=== PATIENT | female | born 1955 | race Caucasian/White ===

== ENCOUNTER → 2017-06-27 | Outpatient (CLI) | payer BC ==
[~2017-06-27] MED LIST: ATEN100T PO; CLIN300C2 PO
== END | disposition home or self-care (01) ==
LOC: C.LAB1850 09:04
PROVIDERS: ATTEND Internal Medicine
DX: Z11.59 Encounter for screening for other viral diseases (principal)

== ENCOUNTER 2024-07-28 | Inpatient (IN) ==
[2024-07-28] MEDS: KETOROLAC 30 MG/ML VIAL IV ONE (01:26)
[2024-07-28 01:39] LABS: Basophils # (auto) 0.11 K/uL (0.00-0.20); Basophils % (auto) 0.8 %; Eosinophils # (auto) 0.26 K/uL (0.00-0.50); Eosinophils % (auto) 1.9 %; Hematocrit (blood only) 40.1 % (37.0-47.0); Hemoglobin 13.4 g/dl (12.0-16.0); Immature Granulocytes # (auto) 0.05 K/uL (0.01-0.20); Immature Granulocytes % (auto) 0.4 %; Lymphocytes # (auto) 2.27 K/uL (1.20-3.40); Lymphocytes % (auto) 16.7 %; Mean Corpuscular Hemoglobin 28.6 pg (25.0-34.0); Mean Corpuscular Hgb Conc 33.4 g/dL (32.0-36.0); Mean Corpuscular Volume 85.5 fL (80.0-100.0); Mean Platelet Volume 9.3 fL (9.4-12.4); Monocytes # (auto) 0.85 K/uL (0.11-0.59); Monocytes % (auto) 6.3 %; Neutrophils # (auto) 10.04 K/uL (1.40-6.50); Neutrophils % (auto) 73.9 %; Platelet Count 367 K/uL (130-400); RDW Coefficient of Variation 13.7 % (11.5-14.5); RDW Standard Deviation 42.5 fL (36.4-46.3); Red Blood Count 4.69 M/uL (4.20-5.40); White Blood Count 13.58 K/ul (4.8-10.8)
[2024-07-28 01:47] LABS: Albumin Globulin Ratio 1.4 (0.9-2); Albumin Level 4.2 gm/dl (3.4-5.0); BUN Creatinine Ratio 16.3 (10-20); Bilirubin,Total 0.6 mg/dl (0.2-1.0); Creatinine Clr Calc Pharmacy 56.6 ml/min; Globulin 2.9 gm/dl (2.5-4.0); Potassium 3.4 mmol/L (3.5-5.1); Total Protein 7.1 gm/dl (6.0-8.3)
[2024-07-28 01:54] LABS: Troponin I High Sensitivity 3.6 pg/ml (0-14)
--- NOTE | 2024-07-28 02:21 | Ultrasound Report ---
Exam(s): US GALLBLADDER EXAM: US Abdomen Limited, Gallbladder CLINICAL HISTORY: Reason for exam: ruq pain. TECHNIQUE: Real-time ultrasound of the right upper quadrant with image documentation. COMPARISON: No relevant prior studies available. FINDINGS: Liver: Hepatomegaly with echogenic parenchyma suggesting steatosis or other hepatocellular disease. Benign hepatic cysts. Gallbladder: Gallbladder distention, wall thickening, and pericholecystic fluid with positive Andrade sign. No visible cholelithiasis. Common bile duct: Common bile duct measures 8.5 mm, mildly enlarged for age. Pancreas: Unremarkable as visualized. Right kidney: Unremarkable. Right kidney measures 11.1 cm. No hydronephrosis. Other vasculature: Patent normally directed portal vein. IMPRESSION: 1. Gallbladder distention, wall thickening, and pericholecystic fluid with positive Andrade sign. No visible cholelithiasis. Appearance may represent acalculous cholecystitis. Correlate clinically. 2. Common bile duct measures 8.5 mm, mildly enlarged for age. If there is laboratory evidence of biliary obstruction, consider MRCP. 3. Hepatomegaly with echogenic parenchyma suggesting steatosis or other hepatocellular disease. Electronically signed by: Francesco Cadet M.D. 07/28/24 02:21 AM
--- NOTE | 2024-07-28 02:35 | Emergency Department Note ---
Impression & Plan Acute acalculous cholecystitis admit to the [facility] ED Provider Note NAME: ISAAK FRANCIS AGE: 68 SEX: Female INFORMANT: Patient ED PROVIDER(S): Bibi Norris DO CHIEF COMPLAINT: Mid back pain and bilateral rib cage pain PLAN: Disposition: admit to the [facility] MEDICAL DECISION MAKING: this is a 68-year-old female patient presents to the emergency department with sudden onset of mid back pain that radiates around to both sides of her ribs. Patient denies ever having pain like this in the past. Discomfort seem to cause her shortness of breath and chest discomfort. Laboratory studies revealed a mild leukocytosis with a white count of 13.5. H&H were stable. Troponin was negative. Renal function was normal. On physical exam, the patient had easily reproducible discomfort in the right upper quadrant with a positive Andrade sign. She went for ultrasound of the gallbladder which was positive and showed evidence of acalculus cholecystitis. Patient was medicated with IV Toradol for her pain. This gave her moderate relief of her discomfort. I discussed the case with Dr. Jordan from general surgery. He requested that I discussed the case with the [facility]. Care/management discussed with: field reimbursement manager, Dr. Jordan from general surgery, [facility] Triage Nursing notes: reviewed and agree with them. Vital Signs: reviewed and unremarkable Additional History obtained from: patient's who is at the bedside Differential Diagnosis: musculoskeletal pain, pancreatitis, cholecystitis, PE Diagnostics, independently interpreted by me: ECG: normal sinus rhythm at a rate of [address] segment elevation or signs of ischemia. There is no ectopy. Cardiac Monitoring: Normal sinus rhythm at a rate of 84 Imaging studies: gallbladder ultrasound: As per stat rad HPI: 68 year old Female arrives for evaluation of mid back pain and bilateral rib cage pain. patient describes sudden onset of pain in the middle of her back that wraparound both sides of her rib cage. pain began very suddenly around 9:30 PM this evening. She describes having sudden onset of mild shortness of breath and some chest discomfort. She tried taking Pepcid and Rolaids with no relief. She has never had pain like this in the past. Patient had eaten some beef and peppers earlier in the evening but this did not seem to be related to this. PAST MEDICAL HISTORY: See Below, PAST SURGICAL HISTORY: See Below, SOCIAL HISTORY: See Below, HOME MEDICATIONS: See Below ALLERGIES: None VITALS: See Below PHYSICAL EXAMINATION: HEENT: Head - normocephalic and atraumatic Pupils are equal, round, and reactive to light. Extraocular eye muscles are intact, and sclera are anicteric. Nose - moist nasal mucosa without discharge. Mouth - moist buccal mucosa. Oropharynx is nonerythematous and there is no tonsillar exudate or edema noted. Neck: Supple; no JVD, nuchal rigidity, cervical lymphadenopathy, or auscultated bruits. Heart: Regular rate and rhythm. There is a normal S1 and S2 with no murmurs, clicks, or gallops appreciated. Lungs: Clear to auscultation bilaterally with no wheezes, rales, or rhonchi. Abdomen: Soft, Exquisite tenderness to palpation of the right upper quadrant of the abdomen. There is a positive Andrade sign. There are no palpable pulsatile masses or hepatosplenomegaly. There is no guarding, rigidity, or rebound noted. Extremities: No evidence of cyanosis, clubbing, or edema. There are easily palpable peripheral pulses. Skin: warm and dry with good turgor and no rashes. Emergency department treatment: potline monitor, IV Toradol Emergency department course: The patient was evaluated in room B-11. A complete history and physical was performed. An IV lock was initiated and labs are drawn as above. An order was placed for continuous cardiac monitoring. The patient was in a normal sinus rhythm at a rate of 84. A twelve-lead EKG was obtained as described above. Patient was given a dose of IV Toradol for pain. Patient went for ultrasound of the right upper quadrant. This revealed evidence of a dilated gallbladder with a positive ultrasound Andrade sign And pericholecystic fluid. I reviewed these findings with the patient and her . She remained comfortable after receiving the IV Toradol. I discussed the case with Dr. Jordan from general surgery and he recommended that the patient be admitted to the hospitalist service. Past Med/Surg History Problem List (Updated 07/28/24 @ 07:01 by Bibi Norris DO) Acute acalculous cholecystitis (Acute) Acalculous cholecystitis Abnormal gallbladder ultrasound Abnormal mammogram of right breast Hip pain, right Screening for breast cancer Dietary counseling and surveillance Morbid obesity Normal left ventricular systolic function and wall motion Obesity Mild reactive airways disease Restrictive lung disease secondary to obesity Abnormal PFTs (pulmonary function tests) Vitamin B12 deficiency SOBOE (shortness of breath on exertion) FH: brain aneurysm Headache Health care maintenance Glossitis Fatigue (Acute) Hyperlipidemia (Acute) Hypertension (Acute) Metabolic syndrome (Acute) Nephrolithiasis (Acute) Nocturnal hypoxia (Acute) Severe sleep apnea (Acute) Tubular adenoma of colon (Acute) Vitamin D deficiency (Acute) Medical History Diarrhea Kidney stone BMI 38.0-38.9,adult Shortness of breath on exertion Surgical History History of cataract surgery History of blepharoplasty History of conization of cervix History of dilation and curettage History of tubal ligation Hx of cataract surgery Family History Unknown Stroke syndrome Cerebral arterial aneurysm Father Diabetes Lung cancer Hypertension Mother Cerebral arterial aneurysm Pure hypercholesterolemia Brother Sleep apnea, obstructive Pure hypercholesterolemia Sister Pure hypercholesterolemia Denies family history of Ovarian cancer Prostate cancer Myocardial infarction Breast cancer Colorectal cancer Social History Smoking Status: Former smoker packs per day: 0.5; Cigarettes Per Day: 10- 20 A DAY AND IT WAS OFF AND ON FOR UNKNOWN YEARS; Second Hand Exposure: No; Hx Alcohol Use: Yes Alcohol type: wine Hx Substance Use: No Preferred Language: Lithuanian Communication Ability: Effective Visual Impairment: No Limitations Hearing Ability: Normal Communications Consultant Required: No Beliefs That Will Affect Care: None marital status: Current Living Situation: Spouse current occupational status: retired Other Information That Helps Us Care for You: No Feels Safe at Home: Yes Safety Concerns: Feels Safe At This Time Childhood Exposure to Second-Hand Smoke: No Seatbelt Use: always Assistive Devices: None Allergies Allergies Allergy/AdvReac Type Severity Reaction Status Date / Time No Known Drug Allergies Allergy Verified 07/14/24 11:12 Home Meds Home Medications Medication Instructions Recorded Confirmed cholecalciferol (vitamin D3) 125 5,000 unit PO DAILY 08/17/20 07/28/24 mcg (5,000 unit) capsule Previous Rx's Medication Instructions Recorded mecobalamin (vitamin B12) 1,000 1,000 mcg PO DAILY #90 tabs 10/31/23 mcg chewable tablet atorvastatin 10 mg tablet 10 mg PO DAILY #90 tabs 04/04/24 hydrochlorothiazide 25 mg tablet 25 mg PO DAILY #90 tabs 04/04/24 losartan 100 mg tablet 100 mg PO DAILY #90 tabs 04/04/24 semaglutide 2 mg/dose (8 mg/3 mL) 2 mg (0.75 mL) subcut Q7D #3 mL 07/14/24 subcutaneous pen injector (Ozempic) Results & Data (ED) Vital Signs Vital Signs - 24 hr 07/28/24 00:04 07/28/24 00:24 07/28/24 00:28 Temperature 36.5 C Temperature Source Oral Pulse Rate 97 H 88 Pulse Rate [Apical] 88 Respiratory Rate 18 Respiratory Effort / Characteristics Non-Labored Spontaneous Respiratory Depth Normal Respiratory Pattern Regular Blood Pressure 151/90 H Blood Pressure [Right Arm] 159/94 H Blood Pressure Mean 110 Blood Pressure Mean [Right Arm] 115 Pulse Oximetry 94 94 Oxygen Delivery Method Room Air Room Air Sepsis Recent Fever Within 48 Hours No Sepsis New/Unexplained Change in Mental Status No Sepsis Action Taken by Nursing No Action Required 07/28/24 01:29 07/28/24 02:01 07/28/24 04:06 Temperature Temperature Source Pulse Rate 87 Pulse Rate [Apical] 86 85 Respiratory Rate 20 20 20 Respiratory Effort / Characteristics Non-Labored Spontaneous Non-Labored Spontaneous Respiratory Depth Normal Normal Respiratory Pattern Regular Regular Blood Pressure Blood Pressure [Right Arm] 145/84 H 137/88 Blood Pressure Mean Blood Pressure Mean [Right Arm] 104 104 Pulse Oximetry 94 94 95 Oxygen Delivery Method Room Air Room Air Room Air Sepsis Recent Fever Within 48 Hours Sepsis New/Unexplained Change in Mental Status Sepsis Action Taken by Nursing Laboratory Data 07/28/24 00:30 07/28/24 00:30 Lab Results 07/28/24 07/28/24 Range/Units 00:30 03:05 WBC 13.58 H (4.8-10.8) K/ul RBC 4.69 (4.20-5.40) M/uL Hgb 13.4 (12.0-16.0) g/dl Hct 40.1 (37.0-47.0) % MCV 85.5 (80.0-100.0) fL MCH 28.6 (25.0-34.0) pg MCHC 33.4 (32.0-36.0) g/dL RDW Std Deviation 42.5 (36.4-46.3) fL RDW Coeff of Meg 13.7 (11.5-14.5) % Plt Count 367 (130-400) K/uL MPV 9.3 L (9.4-12.4) fL Immature Gran % (Auto) 0.4 % Neut % (Auto) 73.9 % Lymph % (Auto) 16.7 % Hyde % (Auto) 6.3 % Eos % (Auto) 1.9 % Baso % (Auto) 0.8 % Neut # (Auto) 10.04 H (1.40-6.50) K/uL Lymph # (Auto) 2.27 (1.20-3.40) K/uL Hyde # (Auto) 0.85 H (0.11-0.59) K/uL Eos # (Auto) 0.26 (0.00-0.50) K/uL Baso # (Auto) 0.11 (0.00-0.20) K/uL Immature Gran # (Auto) 0.05 (0.01-0.20) K/uL Sodium 139 (136-145) mmol/L Potassium 3.4 L (3.5-5.1) mmol/L Chloride 103 (98-107) mmol/L Carbon Dioxide 26 (21-32) mmol/L Anion Gap 10 (3-11) BUN 17 (6-23) mg/dl Creatinine 1.04 (0.6-1.2) mg/dl Est Cr Clr Drug Dosing 56.6 ml/min eGFR 57.82 BUN/Creatinine Ratio 16.3 (10-20) Glucose 120 H (70-99(Fasting)) mg/dl Calcium 10.0 (8.6-10.3) mg/dl Total Bilirubin 0.6 (0.2-1.0) mg/dl AST 28 (13-39) U/L ALT 19 (7-52) U/L Alkaline Phosphatase 72 (34-104) U/L Troponin I High Sens 3.6 (0-14) pg/ml Total Protein 7.1 (6.0-8.3) gm/dl Albumin 4.2 (3.4-5.0) gm/dl Globulin 2.9 (2.5-4.0) gm/dl Albumin/Globulin Ratio 1.4 (0.9-2) Lipase 33 (11-82) U/L Urine Color Yellow Urine Appearance Cloudy A (Clear) Urine pH 5.5 (4.5-7.5) Ur Specific [place] 1.016 (1.000-1.030) Urine Protein Negative (Negative) Urine Glucose (UA) Negative (Negative) Urine Ketones Negative (Negative) Urine Blood Negative (Negative) Urine Nitrite Positive A (Negative) Urine Bilirubin Negative (Negative) Urine Urobilinogen Negative (Negative) Ur Leukocyte Esterase 2+ H (Negative) Urine WBC (Auto) 21-50 H (0-5) /hpf Urine RBC (Auto) 0-2 (0-2) /hpf U Hyaline Cast (Auto) 0-2 (0-2) /lpf U Epithel Cells (Auto) 3-5 H (0-2) /hpf Urine Bacteria (Auto) 4+ H (None Seen) Administered Medications Ciprofloxacin (Cipro / D5w) 400 mg in 200 mls @ 200 mls/hr IV Q12H [facility]; Protocol Stop: 08/07/24 05:59 Last Admin: 07/28/24 05:50 Dose: 200 mls/hr Documented By: MGW Potassium Chloride/Sodium Chloride (Normal Saline W/20 Meq Kcl) 20 meq in 1,000 mls @ 80 mls/hr IV .[id number] PABLO Stop: 07/28/24 18:29 Last Admin: 07/28/24 05:50 Dose: 80 mls/hr Documented By: HFW Discontinued Medications Ketorolac Tromethamine (Ketorolac 30 Mg/Ml Vial) 30 mg IV NOW ONE Stop: 07/28/24 01:23 Last Admin: 07/28/24 01:26 Dose: 30 mg Documented By: EMB Imaging Data Radiologist's Impression: Gallbladder Ultrasound 07/28/24 01:22 Exam(s): US GALLBLADDER EXAM: US Abdomen Limited, Gallbladder CLINICAL HISTORY: Reason for exam: ruq pain. TECHNIQUE: Real-time ultrasound of the right upper quadrant with image documentation. COMPARISON: No relevant prior studies available. FINDINGS: Liver: Hepatomegaly with echogenic parenchyma suggesting steatosis or other hepatocellular disease. Benign hepatic cysts. Gallbladder: Gallbladder distention, wall thickening, and pericholecystic fluid with positive Andrade sign. No visible cholelithiasis. Common bile duct: Common bile duct measures 8.5 mm, mildly enlarged for age. Pancreas: Unremarkable as visualized. Right kidney: Unremarkable. Right kidney measures 11.1 cm. No hydronephrosis. Other vasculature: Patent normally directed portal vein. IMPRESSION: 1. Gallbladder distention, wall thickening, and pericholecystic fluid with positive Andrade sign. No visible cholelithiasis. Appearance may represent acalculous cholecystitis. Correlate clinically. 2. Common bile duct measures 8.5 mm, mildly enlarged for age. If there is laboratory evidence of biliary obstruction, consider MRCP. 3. Hepatomegaly with echogenic parenchyma suggesting steatosis or other hepatocellular disease. Electronically signed by: Francesco Cadet M.D. 07/28/24 02:21 AM Discharge Plan Visit Data Chief Complaint: Back Injury/Pain Stated Complaint: SEVERE BACK PAIN -ACROSS BACK, AROUND SIDES ED Provider: Bibi Norris Discharge Problem: Acute acalculous cholecystitis Patient Disposition: Admitted As Inpatient Discharge Instructions Interventions: ED Discharge Assessment Last Done: 07/28/24 05:09
[2024-07-28 03:52] LABS: Appearance Urine Cloudy (Clear); Bacteria Urine Automated 4+ (None Seen); Bilirubin Urine Negative (Negative); Blood Urine Negative (Negative); Cast Urine Automated 0-2 /lpf (0-2); Color Urine Yellow; Glucose Urine UA Negative (Negative); Ketones Urine Negative (Negative); Leukocyte Esterase Urine 2+ (Negative); Nitrite Urine Positive (Negative); Protein Urine Negative (Negative); RBC Urine Automated 0-2 /hpf (0-2); Specific Gravity Urine 1.016 (1.000-1.030); Urobilinogen Urine Negative (Negative); WBC Urine Automated 21-50 /hpf (0-5); pH Urine 5.5 (4.5-7.5)
[2024-07-28] MEDS ORDERED: hydrALAZINE HCL 20 MG/ML VIAL IV PRN (04:18)
--- NOTE | 2024-07-28 04:21 | History & Physical Report ---
Date of Service July 28, 2024 Assessment & Plan (1) Abnormal gallbladder ultrasound: (2) Acalculous cholecystitis: (3) Hyperlipidemia: (4) Hypertension: (5) Vitamin B12 deficiency: (6) Obesity: (7) Metabolic syndrome: (8) Severe sleep apnea: Plan Acalculous cholecystitis/abnormal gallbladder ultrasound- Neutrophilic leukocytosis Normal LFTs and lipase Dilated common bile duct of 8.5 mm Sonographic Andrade sign Order HIDA scan NPO Cipro 400 mg IV every 12 hours Flagyl 500 mg IV every 8 hours Pantoprazole 40 mg IV daily Zofran 4 mg IV every 6 hours as needed NSS + KCl 20 mill equivalents at 80 mL/h x 1 L Acetaminophen 1 g IV every 8 hours as needed for mild pain or fever Morphine sulfate 2 mg IV every 3 hours as needed for moderate pain Morphine sulfate 4 mg IV every 3 hours as needed for severe pain Consult general surgery Metabolic syndrome/diabetes mellitus/hyperlipidemia- Holding semaglutide, atorvastatin Hypertension- Hold HCTZ and losartan Hydralazine 10 mg IV every 4 hours as needed for systolic blood pressure above 160 History of Present Illness Chief Complaint: The patient presents to the emergency department with acute onset of pain that began around 9:00 the evening of 07/27, that began around her right upper quadrant of abdomen, and spread around to the back on both sides bilaterally. Primary Care Provider: Suhas Tomlin MD The patient is a 68-year-old female with a past medical history including morbid obesity following with bariatric service, recent 13.7% weight loss, recently placed on semaglutide, mild reactive airways disease, restrictive lung disease secondary to obesity, B12 deficiency, hyperlipidemia, hypertension, metabolic syndrome, nocturnal hypoxia, severe LAURA and vitamin D deficiency. The patient presents to the emergency department after the acute onset of right upper quadrant pain rotating around to her back bilaterally, around 9:00 this evening , with the intensity causing her to come to the ED for assessment. She has had no previous occurrence of this pain. She has not had any significant issues with reflux or indigestion. She was given Toradol 30 mg IV in the ED which relieved the pain. Gallbladder ultrasound showed abnormal gallbladder with sonographic Andrade sign, common bile duct dilation of 8.5 mm, altogether concerning for possible acalculous cholecystitis. Case was reviewed by the ED with general surgery, who asked that the patient be admitted to the hospitalist service with surgical consult. Allergies Allergy/AdvReac Type Severity Reaction Status Date / Time No Known Drug Allergies Allergy Verified 07/14/24 11:12 Home Medications Medication Instructions Recorded Confirmed Type cholecalciferol (vitamin D3) 125 5,000 unit PO DAILY 08/17/20 07/28/24 History mcg (5,000 unit) capsule mecobalamin (vitamin B12) 1,000 1,000 mcg PO DAILY #90 tabs 10/31/23 07/28/24 Rx mcg chewable tablet atorvastatin 10 mg tablet 10 mg PO DAILY #90 tabs 04/04/24 07/28/24 Rx hydrochlorothiazide 25 mg tablet 25 mg PO DAILY #90 tabs 04/04/24 07/28/24 Rx losartan 100 mg tablet 100 mg PO DAILY #90 tabs 04/04/24 07/28/24 Rx semaglutide 2 mg/dose (8 mg/3 mL) 2 mg (0.75 mL) subcut Q7D #3 mL 07/14/24 07/28/24 Rx subcutaneous pen injector (Ozempic) Past Med/Surg History Problem List (Updated 07/28/24 @ 04:16 by Tan Dowd MD) Acalculous cholecystitis Abnormal gallbladder ultrasound Abnormal mammogram of right breast Hip pain, right Screening for breast cancer Dietary counseling and surveillance Morbid obesity Normal left ventricular systolic function and wall motion Obesity Mild reactive airways disease Restrictive lung disease secondary to obesity Abnormal PFTs (pulmonary function tests) Vitamin B12 deficiency SOBOE (shortness of breath on exertion) FH: brain aneurysm Headache Health care maintenance Glossitis Fatigue (Acute) Hyperlipidemia (Acute) Hypertension (Acute) Metabolic syndrome (Acute) Nephrolithiasis (Acute) Nocturnal hypoxia (Acute) Severe sleep apnea (Acute) Tubular adenoma of colon (Acute) Vitamin D deficiency (Acute) Medical History Diarrhea Kidney stone BMI 38.0-38.9,adult Shortness of breath on exertion Surgical History History of cataract surgery History of blepharoplasty History of conization of cervix History of dilation and curettage History of tubal ligation Hx of cataract surgery Family History Unknown Stroke syndrome Cerebral arterial aneurysm Father Diabetes Lung cancer Hypertension Mother Cerebral arterial aneurysm Pure hypercholesterolemia Brother Sleep apnea, obstructive Pure hypercholesterolemia Sister Pure hypercholesterolemia Denies family history of Ovarian cancer Prostate cancer Myocardial infarction Breast cancer Colorectal cancer Social History Smoking Status: Former smoker packs per day: 0.5; Cigarettes Per Day: 10- 20 A DAY AND IT WAS OFF AND ON FOR UNKNOWN YEARS; Second Hand Exposure: No; Hx Alcohol Use: Yes Alcohol type: beer and hard liquor Hx Substance Use: No Preferred Language: Albanian Communication Ability: Effective Visual Impairment: No Limitations Hearing Ability: Normal Employee Health Rn Required: No marital status: Current Living Situation: Spouse current occupational status: retired Feels Safe at Home: Yes Childhood Exposure to Second-Hand Smoke: No Seatbelt Use: always Review of Systems Review of Systems: The patient denies chest pain, palpitations, shortness of breath, dyspnea on exertion, cough, lower extremity swelling, sore throat, fevers, chills, sweats, weight change, fatigue, nausea, vomiting, diarrhea , constipation, blood in urine or stool, dysuria, urinary frequency or urgency, lightheadedness, dizziness, headache, memory loss, loss of consciousness, rash, abnormal bruising or bleeding, imbalance, focal or generalized weakness, numbness or tingling in arms or legs, generalized arthralgias or myalgias, neck pain, or night sweats. The review of systems is otherwise negative other than for that already noted above, and at least 10 systems have been reviewed. Physical Exam Physical Exam: The patient is awake, alert and oriented 3, well developed and well nourished, normocephalic and atraumatic, lying in bed and in no acute distress. HEENT--PERRL, EOMI, mucous membranes and oropharynx dry. Neck--supple.No JVD. No bruits. Thyroid normal, trachea midline, no adenopathy. Heart--normal S1 and S2.No murmurs, rubs or gallops. Lungs--clear bilaterally, no respiratory distress, no accessory muscle use. Abdomen--normal bowel sounds and soft. Nontender. Nondistended, no hernias or masses,no organomegaly. Extremities--no cyanosis or clubbing. No edema. There are good distal pulses b/l. Dermatologic--normal skin turgor, normal color, no abnormal lymph nodes, no rash. Neurologic--cranial nerves II through XII grossly intact. Rheumatologic--normal range of motion. Psychiatric--normal affect. Results & Data Results & Data Vital Signs (Past 12 Hours) Vital Signs Temp Pulse Pulse Resp BP BP Pulse Ox 07/28/24 04:06 85 20 137/88 95 07/28/24 02:01 86 20 145/84 H 94 07/28/24 01:29 87 20 94 07/28/24 00:28 88 07/28/24 00:24 88 18 159/94 H 94 07/28/24 00:04 36.5 C 97 H 151/90 H 94 O2 Del Method 07/28/24 04:06 Room Air 07/28/24 02:01 Room Air 07/28/24 01:29 Room Air 07/28/24 00:28 07/28/24 00:24 Room Air 07/28/24 00:04 Room Air Laboratory Results Laboratory Results WBC 13.58 K/ul (4.8-10.8) H 07/28/24 00:30 RBC 4.69 M/uL (4.20-5.40) 07/28/24 00:30 Hgb 13.4 g/dl (12.0-16.0) 07/28/24 00:30 Hct 40.1 % (37.0-47.0) 07/28/24 00:30 MCV 85.5 fL (80.0-100.0) 07/28/24 00:30 MCH 28.6 pg (25.0-34.0) 07/28/24 00:30 MCHC 33.4 g/dL (32.0-36.0) 07/28/24 00:30 RDW Std Deviation 42.5 fL (36.4-46.3) 07/28/24 00:30 RDW Coeff of Meg 13.7 % (11.5-14.5) 07/28/24 00:30 Plt Count 367 K/uL (130-400) 07/28/24 00:30 MPV 9.3 fL (9.4-12.4) L 07/28/24 00:30 Immature Gran % (Auto) 0.4 % 07/28/24 00:30 Neut % (Auto) 73.9 % 07/28/24 00:30 Lymph % (Auto) 16.7 % 07/28/24 00:30 [place] % (Auto) 6.3 % 07/28/24 00:30 Eos % (Auto) 1.9 % 07/28/24 00:30 Baso % (Auto) 0.8 % 07/28/24 00:30 Neut # (Auto) 10.04 K/uL (1.40-6.50) H 07/28/24 00:30 Lymph # (Auto) 2.27 K/uL (1.20-3.40) 07/28/24 00:30 [place] # (Auto) 0.85 K/uL (0.11-0.59) H 07/28/24 00:30 Eos # (Auto) 0.26 K/uL (0.00-0.50) 07/28/24 00:30 Baso # (Auto) 0.11 K/uL (0.00-0.20) 07/28/24 00:30 Immature Gran # (Auto) 0.05 K/uL (0.01-0.20) 07/28/24 00:30 Sodium 139 mmol/L (136-145) 07/28/24 00:30 Potassium 3.4 mmol/L (3.5-5.1) L 07/28/24 00:30 Chloride 103 mmol/L (98-107) 07/28/24 00:30 Carbon Dioxide 26 mmol/L (21-32) 07/28/24 00:30 Anion Gap 10 (3-11) 07/28/24 00:30 BUN 17 mg/dl (6-23) 07/28/24 00:30 Creatinine 1.04 mg/dl (0.6-1.2) 07/28/24 00:30 Est Cr Clr Drug Dosing 56.6 ml/min 07/28/24 00:30 eGFR 57.82 07/28/24 00:30 BUN/Creatinine Ratio 16.3 (10-20) 07/28/24 00:30 Glucose 120 mg/dl (70-99(Fasting)) H 07/28/24 00:30 Calcium 10.0 mg/dl (8.6-10.3) 07/28/24 00:30 Total Bilirubin 0.6 mg/dl (0.2-1.0) 07/28/24 00:30 AST 28 U/L (13-39) 07/28/24 00:30 ALT 19 U/L (7-52) 07/28/24 00:30 Alkaline Phosphatase 72 U/L (34-104) 07/28/24 00:30 Troponin I High Sens 3.6 pg/ml (0-14) 07/28/24 00:30 Total Protein 7.1 gm/dl (6.0-8.3) 07/28/24 00:30 Albumin 4.2 gm/dl (3.4-5.0) 07/28/24 00:30 Globulin 2.9 gm/dl (2.5-4.0) 07/28/24 00:30 Albumin/Globulin Ratio 1.4 (0.9-2) 07/28/24 00:30 Lipase 33 U/L (11-82) 07/28/24 00:30 Urine Color Yellow 07/28/24 03:05 Urine Appearance Cloudy (Clear) A 07/28/24 03:05 Urine pH 5.5 (4.5-7.5) 07/28/24 03:05 Ur Specific [place] 1.016 (1.000-1.030) 07/28/24 03:05 Urine Protein Negative (Negative) 07/28/24 03:05 Urine Glucose (UA) Negative (Negative) 07/28/24 03:05 Urine Ketones Negative (Negative) 07/28/24 03:05 Urine Blood Negative (Negative) 07/28/24 03:05 Urine Nitrite Positive (Negative) A 07/28/24 03:05 Urine Bilirubin Negative (Negative) 07/28/24 03:05 Urine Urobilinogen Negative (Negative) 07/28/24 03:05 Ur Leukocyte Esterase 2+ (Negative) H 07/28/24 03:05 Urine WBC (Auto) 21-50 /hpf (0-5) H 07/28/24 03:05 Urine RBC (Auto) 0-2 /hpf (0-2) 07/28/24 03:05 U Hyaline Cast (Auto) 0-2 /lpf (0-2) 07/28/24 03:05 U Epithel Cells (Auto) 3-5 /hpf (0-2) H 07/28/24 03:05 Urine Bacteria (Auto) 4+ (None Seen) H 07/28/24 03:05 Impressions Gallbladder Ultrasound 07/28/24 01:22 Exam(s): US GALLBLADDER EXAM: US Abdomen Limited, Gallbladder CLINICAL HISTORY: Reason for exam: ruq pain. TECHNIQUE: Real-time ultrasound of the right upper quadrant with image documentation. COMPARISON: No relevant prior studies available. FINDINGS: Liver: Hepatomegaly with echogenic parenchyma suggesting steatosis or other hepatocellular disease. Benign hepatic cysts. Gallbladder: Gallbladder distention, wall thickening, and pericholecystic fluid with positive Andrade sign. No visible cholelithiasis. Common bile duct: Common bile duct measures 8.5 mm, mildly enlarged for age. Pancreas: Unremarkable as visualized. Right kidney: Unremarkable. Right kidney measures 11.1 cm. No hydronephrosis. Other vasculature: Patent normally directed portal vein. IMPRESSION: 1. Gallbladder distention, wall thickening, and pericholecystic fluid with positive Andrade sign. No visible cholelithiasis. Appearance may represent acalculous cholecystitis. Correlate clinically. 2. Common bile duct measures 8.5 mm, mildly enlarged for age. If there is laboratory evidence of biliary obstruction, consider MRCP. 3. Hepatomegaly with echogenic parenchyma suggesting steatosis or other hepatocellular disease. Electronically signed by: Francesco Cadet M.D. 07/28/24 02:21 AM Code Status & VTE Plan Code Status Full code VTE Prophylaxis Plan VTE Prophylaxis will be ordered: Yes PG Care Time/CCT Total # of Minutes Spent Total Time Spent with Patient: Total time spent is greater than 50% in coordination of care (as documented) at patient's floor/unit and/or counseling patient: Coding Level of Care Code 59546 INT INP/OBS CARE 3/75MIN Diagnoses Abnormal gallbladder ultrasound R93.2 Acalculous cholecystitis K81.9 Hyperlipidemia E78.5 Hypertension I10 Vitamin B12 deficiency E53.8 Class 2 severe obesity due to excess calories with serious comorbidity and body mass index (BMI) of 39.0 to 39.9 in adult E66.01; Z68.39 Obesity type: due to excess calories Obesity classification: adult class 2 (BMI 35 - 39.9) Serious obesity comorbidity presence: with serious comorbidity Body mass index: BMI 39.0-39.9 Metabolic syndrome E88.81 Severe sleep apnea G47.30 (6) Obesity Obesity type: due to excess calories Obesity classification: adult class 2 (BMI 35 - 39.9) Serious obesity comorbidity presence: with serious comorbidity Body mass index: BMI 39.0-39.9 Qualified Code(s): E66.01 - Morbid (severe) obesity due to excess calories; Z68.39 - Body mass index [BMI] 39.0-39.9, adult
[2024-07-28] MEDS ORDERED: MoRPHine SULFATE 4 MG/ML 1 ML CARP\\VIAL IV PRN (05:25)
[2024-07-28] MEDS ORDERED: MoRPHine SULFATE 2 MG/ML CARP IV PRN (05:25)
[2024-07-28] MEDS ORDERED: ONDANSETRON INJ 2 MG/ML 2 ML VIAL IV PRN (05:25)
[2024-07-28] MEDS: CIPROFLOXACIN / D5W 400 MG/200 ML BAG IV SCH (05:50)
[2024-07-28] MEDS: NSS + 20MEQ KCL 20 MEQ/1,000 ML BAG IV SCH (05:50)
[2024-07-28] MEDS: metroNIDAZOLE 500 MG/100 ML BAG IV SCH (07:32)
--- NOTE | 2024-07-28 12:08 | Electrocardiogram Report ---
Test Reason : Blood Pressure : */* mmHG Vent. Rate : 75 BPM Atrial Rate : 75 BPM P-R Int : 194 ms QRS Dur : 92 ms QT Int : 388 ms P-R-T Axes : 52 -4 45 degrees QTcB Int : 433 ms Normal sinus rhythm Incomplete right bundle branch block Normal ECG When compared with ECG of 28-Jul-2024 00:23, No significant change was found Confirmed by Seth Baker ([id number]) on 07/28/2024 12:08:42 PM Referred By: REFERRED SELF Confirmed By: Seth Baker
--- NOTE | 2024-07-28 13:01 | Nuclear Medicine Report ---
NM hepatobiliary EF CLINICAL HISTORY: acalculous cholecystitis TECHNIQUE: Following the intravenous injection of 5.0 mCi of Tc-99m labeled Technetium 99m mebrofeni n, multiple images of the upper abdomen were obtained in the anterior projection with uptake measurem ents of the gallbladder obtained. Once the gallbladder and small bowel were visualized, the patient w as intravenously infused over 30 minutes with 0.02 mcg/kg of Sincalide (CCK), and imaging and uptakes were again obtained. Comparison: Comparison is made to gallbladder ultrasound 07/28/2024 FINDINGS: Sequential images demonstrate normal uptake in the liver, common bile duct, gallbladder, an d small bowel. No defects in uptake are identified. Subsequent imaging after the administration of si ncalide demonstrates prompt elimination of the radiotracer from the gallbladder. The calculated gallbladder ejection fraction based on uptake measurements is 81%. IMPRESSION: Normal uptake and excretion of contrast by the gallbladder. Reference: Normal gallbladder ejection fraction is greater than 33%. ACT 112: Negative or not required by law. Electronically signed by: Saji Rodriguez M.D. 07/28/2024 12:59 PM
[2024-07-28] MEDS: SINCALIDE 2 MCG in SODIUM CHLORIDE 0.9% 100 ML IV ONE (13:05)
[2024-07-28] MEDS: PANTOprazole 40 MG in SYRINGE 0 ML IV SCH (13:07)
--- NOTE | 2024-07-28 13:17 | Surgery Consultation ---
Date of Consultation July 28, 2024 Assessment & Plan (1) Acute acalculous cholecystitis: 68 yo female with 12 hour history of upper abdominal pain with radiation around her back. Ultrasound showing acute acalculous cholecystitis and slightly dilated CBD at 8.5 mm however normal t. bili and lfts. HIDA scan without biliary obstruction. RUQ pain on examination. Patient likely passed small stone/thick sludge and caused her pain. Discussed findings of ultrasound and indication for cholecystectomy to prevent future attacks vs biliary obstruction. Discussed procedure, expected recovery, and risks. She would like to proceed with laparoscopic cholecystectomy while admitted. Will plan for lap roxanna t omorrow am with Dr. Levine. Okay for clear liquids today, NPO after midnight. Continue IV abx. Discussed with Dr. Levine who agrees with above. History of Present Illness Reason for Consultation: Acute acalculous cholecystitis Requesting Physician: Tan Dowd MD Attending Physician: Quique Yates History of Present Illness Jaja is a 68 year old female with past medical history of hypertension, hyperlipidemia, LAURA, vitamin D deficiency, obesity who presented to emergency department last evening due to sudden onset of upper abdominal pain with radiation around her back that started last evening around 930 pm. Pain was sharp and stabbing and continued to increase in severity. Denies of any fever, chills, nausea, vomiting, chest pain, diarrhea, constipation, difficulty urinating, blood in urine, black/tarry stools. No history of gallbladder issues. ER work-up included labs which showed leukocytosis of 13K, afebrile. Ultrasound showing acute acalculous cholecystitis. T. bili and lfts wnl. CBD 8.5 mm on ultrasound. Underwent HIDA scan this am which showed prompt uptake in gallbladder, liver, and small bowel consistent with no biliary obstruction. Jaja currently states she pain is resolved. Hungry. No nausea or vomiting. Allergies Allergy/AdvReac Type Severity Reaction Status Date / Time No Known Drug Allergies Allergy Verified 07/14/24 11:12 Home Medications Medication Instructions Recorded Confirmed Type cholecalciferol (vitamin D3) 125 5,000 unit PO DAILY 08/17/20 07/28/24 History mcg (5,000 unit) capsule mecobalamin (vitamin B12) 1,000 1,000 mcg PO DAILY #90 tabs 10/31/23 07/28/24 Rx mcg chewable tablet atorvastatin 10 mg tablet 10 mg PO DAILY #90 tabs 04/04/24 07/28/24 Rx hydrochlorothiazide 25 mg tablet 25 mg PO DAILY #90 tabs 04/04/24 07/28/24 Rx losartan 100 mg tablet 100 mg PO DAILY #90 tabs 04/04/24 07/28/24 Rx semaglutide 2 mg/dose (8 mg/3 mL) 2 mg (0.75 mL) subcut Q7D #3 mL 07/14/24 07/28/24 Rx subcutaneous pen injector (Ozempic) Patient History Medical History Diarrhea Kidney stone BMI 38.0-38.9,adult Shortness of breath on exertion Surgical History History of cataract surgery History of blepharoplasty History of conization of cervix History of dilation and curettage History of tubal ligation Hx of cataract surgery Family History Unknown Stroke syndrome Cerebral arterial aneurysm Father Diabetes Lung cancer Hypertension Mother Cerebral arterial aneurysm Pure hypercholesterolemia Brother Sleep apnea, obstructive Pure hypercholesterolemia Sister Pure hypercholesterolemia Denies family history of Ovarian cancer Prostate cancer Myocardial infarction Breast cancer Colorectal cancer Social History Smoking Status: Former smoker packs per day: 0.5; Cigarettes Per Day: 10- 20 A DAY AND IT WAS OFF AND ON FOR UNKNOWN YEARS; Second Hand Exposure: No; Hx Alcohol Use: Yes Alcohol type: wine Hx Substance Use: No Preferred Language: Greek Communication Ability: Effective Visual Impairment: No Limitations Hearing Ability: Normal Social Media Marketing Manager Required: No Beliefs That Will Affect Care: None marital status: Current Living Situation: Spouse current occupational status: retired Other Information That Helps Us Care for You: No Feels Safe at Home: Yes Safety Concerns: Feels Safe At This Time Childhood Exposure to Second-Hand Smoke: No Seatbelt Use: always Assistive Devices: None Review of Systems Review of Systems: All systems reviewed & are unremarkable except as noted in HPI & below Physical Exam Constitutional: WD/WN, vitals as above + obese, cooperative and comfortable; no acute distress and not ill appearing Respiratory: normal respiratory effort, lungs clear to auscultation Cardiovascular: RRR, no murmur, no edema Gastrointestinal (Abdomen): Inspection/Auscultation: abdomen normal to inspe ction; abdomen not distended Percussion/Palpation: + abdomen tender (RUQ) and abdomen soft; no guarding, abdomen not rigid and abdomen not firm Skin: no rashes, warm and dry no jaundice Psychiatric: A+Ox3, euthymic affect Results & Data Vital Signs (Past 12 Hours) Vital Signs Temp Pulse Pulse Pulse Resp BP BP 07/28/24 07:28 36.8 C 78 20 111/72 07/28/24 05:33 36.8 C 82 16 151/93 H 07/28/24 05:09 83 16 144/86 H 07/28/24 04:33 84 07/28/24 04:06 85 20 137/88 07/28/24 02:01 86 20 145/84 H 07/28/24 01:29 87 20 Pulse Ox O2 Del Method 07/28/24 07:28 97 Room Air 07/28/24 05:33 95 Room Air 07/28/24 05:09 95 Room Air 07/28/24 04:33 07/28/24 04:06 95 Room Air 07/28/24 02:01 94 Room Air 07/28/24 01:29 94 Room Air Laboratory Results 07/28/24 07/28/24 Range/Units 03:05 00:30 WBC 13.58 H (4.8-10.8) K/ul RBC 4.69 (4.20-5.40) M/uL Hgb 13.4 (12.0-16.0) g/dl Hct 40.1 (37.0-47.0) % MCV 85.5 (80.0-100.0) fL MCH 28.6 (25.0-34.0) pg MCHC 33.4 (32.0-36.0) g/dL RDW Std Deviation 42.5 (36.4-46.3) fL RDW Coeff of Meg 13.7 (11.5-14.5) % Plt Count 367 (130-400) K/uL MPV 9.3 L (9.4-12.4) fL Immature Gran % (Auto) 0.4 % Neut % (Auto) 73.9 % Lymph % (Auto) 16.7 % [place] % (Auto) 6.3 % Eos % (Auto) 1.9 % Baso % (Auto) 0.8 % Neut # (Auto) 10.04 H (1.40-6.50) K/uL Lymph # (Auto) 2.27 (1.20-3.40) K/uL [place] # (Auto) 0.85 H (0.11-0.59) K/uL Eos # (Auto) 0.26 (0.00-0.50) K/uL Baso # (Auto) 0.11 (0.00-0.20) K/uL Immature Gran # (Auto) 0.05 (0.01-0.20) K/uL Sodium 139 (136-145) mmol/L Potassium 3.4 L (3.5-5.1) mmol/L Chloride 103 (98-107) mmol/L Carbon Dioxide 26 (21-32) mmol/L Anion Gap 10 (3-11) BUN 17 (6-23) mg/dl Creatinine 1.04 (0.6-1.2) mg/dl Est Cr Clr Drug Dosing 56.6 ml/min eGFR 57.82 BUN/Creatinine Ratio 16.3 (10-20) Glucose 120 H (70-99(Fasting)) mg/dl Calcium 10.0 (8.6-10.3) mg/dl Total Bilirubin 0.6 (0.2-1.0) mg/dl AST 28 (13-39) U/L ALT 19 (7-52) U/L Alkaline Phosphatase 72 (34-104) U/L Troponin I High Sens 3.6 (0-14) pg/ml Total Protein 7.1 (6.0-8.3) gm/dl Albumin 4.2 (3.4-5.0) gm/dl Globulin 2.9 (2.5-4.0) gm/dl Albumin/Globulin Ratio 1.4 (0.9-2) Lipase 33 (11-82) U/L Urine Color Yellow Urine Appearance Cloudy A (Clear) Urine pH 5.5 (4.5-7.5) Ur Specific [place] 1.016 (1.000-1.030) Urine Protein Negative (Negative) Urine Glucose (UA) Negative (Negative) Urine Ketones Negative (Negative) Urine Blood Negative (Negative) Urine Nitrite Positive A (Negative) Urine Bilirubin Negative (Negative) Urine Urobilinogen Negative (Negative) Ur Leukocyte Esterase 2+ H (Negative) Urine WBC (Auto) 21-50 H (0-5) /hpf Urine RBC (Auto) 0-2 (0-2) /hpf U Hyaline Cast (Auto) 0-2 (0-2) /lpf U Epithel Cells (Auto) 3-5 H (0-2) /hpf Urine Bacteria (Auto) 4+ H (None Seen) Diagnostic Findings NM hepatobiliary EF CLINICAL HISTORY: acalculous cholecystitis TECHNIQUE: Following the intravenous injection of 5.0 mCi of Tc-99m labeled Technetium 99m mebrofenin, multiple images of the upper abdomen were obtained in the anterior projection with uptake measurements of the gallbladder obtained. Once the gallbladder and small bowel were visualized, the patient was intravenously infused over 30 minutes with 0.02 mcg/kg of Sincalide (CCK), and imaging and uptakes were again obtained. Comparison: Comparison is made to gallbladder ultrasound 07/28/2024 FINDINGS: Sequential images demonstrate normal uptake in the liver, common bile duct, gallbladder, and small bowel. No defects in uptake are identified. Subsequent imaging after the administration of sincalide demonstrates prompt elimination of the radiotracer from the gallbladder. The calculated gallbladder ejection fraction based on uptake measurements is 81%. IMPRESSION: Normal uptake and excretion of contrast by the gallbladder. Reference: Normal gallbladder ejection fraction is greater than 33%. Exam(s): US GALLBLADDER EXAM: US Abdomen Limited, Gallbladder CLINICAL HISTORY: Reason for exam: ruq pain. TECHNIQUE: Real-time ultrasound of the right upper quadrant with image documentation. COMPARISON: No relevant prior studies available. FINDINGS: Liver: Hepatomegaly with echogenic parenchyma suggesting steatosis or other hepatocellular disease. Benign hepatic cysts. Gallbladder: Gallbladder distention, wall thickening, and pericholecystic fluid with positive Andrade sign. No visible cholelithiasis. Common bile duct: Common bile duct measures 8.5 mm, mildly enlarged for age. Pancreas: Unremarkable as visualized. Right kidney: Unremarkable. Right kidney measures 11.1 cm. No hydronephrosis. Other vasculature: Patent normally directed portal vein. IMPRESSION: 1. Gallbladder distention, wall thickening, and pericholecystic fluid with positive Andrade sign. No visible cholelithiasis. Appearance may represent acalculous cholecystitis. Correlate clinically. 2. Common bile duct measures 8.5 mm, mildly enlarged for age. If there is laboratory evidence of biliary obstruction, consider MRCP. 3. Hepatomegaly with echogenic parenchyma suggesting steatosis or other hepatocellular disease.
[2024-07-29 06:21] LABS: Basophils # (auto) 0.05 K/uL (0.00-0.20); Basophils % (auto) 0.9 %; Eosinophils # (auto) 0.11 K/uL (0.00-0.50); Hematocrit (blood only) 34.9 % (37.0-47.0); Hemoglobin 11.5 g/dl (12.0-16.0); Immature Granulocytes # (auto) 0.01 K/uL (0.01-0.20); Immature Granulocytes % (auto) 0.2 %; Lymphocytes # (auto) 1.19 K/uL (1.20-3.40); Lymphocytes % (auto) 21.4 %; Mean Corpuscular Hemoglobin 28.3 pg (25.0-34.0); Mean Corpuscular Volume 85.7 fL (80.0-100.0); Mean Platelet Volume 9.2 fL (9.4-12.4); Monocytes # (auto) 0.48 K/uL (0.11-0.59); Monocytes % (auto) 8.6 %; Neutrophils # (auto) 3.71 K/uL (1.40-6.50); Neutrophils % (auto) 66.9 %; Platelet Count 249 K/uL (130-400); RDW Coefficient of Variation 13.7 % (11.5-14.5); RDW Standard Deviation 42.6 fL (36.4-46.3); Red Blood Count 4.07 M/uL (4.20-5.40); White Blood Count 5.55 K/ul (4.8-10.8)
[2024-07-29 06:33] LABS: Albumin Globulin Ratio 1.6 (0.9-2); Albumin Level 3.6 gm/dl (3.4-5.0); BUN Creatinine Ratio 16.7 (10-20); Bilirubin,Total 0.5 mg/dl (0.2-1.0); Calcium 8.6 mg/dl (8.6-10.3); Globulin 2.3 gm/dl (2.5-4.0); Potassium 3.7 mmol/L (3.5-5.1); Total Protein 5.9 gm/dl (6.0-8.3)
--- NOTE | 2024-07-29 07:56 | History & Physical Bridge Note ---
Date of Service July 29, 2024 History & Physical Bridge Note I have examined the patient, reviewed the History & Physical and in the interval since the performance of the History & Physical I have noted the following changes of clinical significance: no changes noted
[2024-07-29] MEDS ORDERED: MIDAZOLAM HCL 1 MG/ML 2ML VIAL ONE (08:21)
[2024-07-29] MEDS ORDERED: fentaNYL citrate PF 100 MCG/2 ML VIAL ONE (08:21)
[2024-07-29] MEDS ORDERED: ePHEDrine sulfate 50 MG/ML AMP IV PRN (08:28)
[2024-07-29] MEDS ORDERED: ATROPINE SULFATE 0.1 MG/ML 10ML SYR IV PRN (08:28)
[2024-07-29] MEDS ORDERED: PROMETHAZINE HCL 6.25 MG in SODIUM CHLORIDE 0.9% 50 ML IV PRN (08:28)
--- NOTE | 2024-07-29 08:29 | Anesthesiology Consultation ---
Date of Service July 29, 2024 Assessment & Plan ASA ASA3 Proposed Anesthesia Anesthesia Type: General Risk / Benefits Reviewed With: PT / POA / Parent / Guardian, Accepts Plan and Informed Consent Obtained History Surgery Operation Date: 07/29/24 08:25 Proposed Procedures p Laparoscopic Cholecystectomy - Evan Levine MD Height/Weight Height: 5 ft 3 in Weight: 99.3 kg Allergies Allergy/AdvReac Type Severity Reaction Status Date / Time No Known Drug Allergies Allergy Verified 07/14/24 11:12 Medications Home Medications Medication Instructions Recorded Confirmed Last Taken cholecalciferol (vitamin D3) 125 5,000 unit PO DAILY 08/17/20 07/28/24 Unknown mcg (5,000 unit) capsule mecobalamin (vitamin B12) 1,000 1,000 mcg PO DAILY #90 tabs 10/31/23 07/28/24 07/27/24 mcg chewable tablet atorvastatin 10 mg tablet 10 mg PO DAILY #90 tabs 04/04/24 07/28/24 07/27/24 hydrochlorothiazide 25 mg tablet 25 mg PO DAILY #90 tabs 04/04/24 07/28/24 07/27/24 losartan 100 mg tablet 100 mg PO DAILY #90 tabs 04/04/24 07/28/24 07/27/24 semaglutide 2 mg/dose (8 mg/3 mL) 2 mg (0.75 mL) subcut Q7D #3 mL 07/14/24 07/28/24 07/22/24 subcutaneous pen injector (Ozempic) Active Medications Generic Name Dose Route Start Last Admin Trade Name Freq PRN Reason Stop Dose Admin Ciprofloxacin 400 mg in 200 mls @ 200 mls/hr 07/28/24 06:00 07/29/24 06:38 Cipro / D5w IV 08/07/24 05:59 Infused Q12H PABLO Infusion Protocol Metronidazole 500 mg in 100 mls @ 100 mls/hr 07/28/24 06:00 07/29/24 07:52 Flagyl IV 08/07/24 05:24 Infused Q8H PABLO Infusion Protocol Pantoprazole Sodium 40 mg/ 10 mls @ 5 mls/min 07/28/24 11:00 07/28/24 13:07 Syringe IV 07/29/24 11:01 5 mls/min DAILY@1100 PABLO Administration NPO Date Last Intake of Fluids: 07/28/24 Time Last Intake of Fluids: 23:59 Date Last Intake of Solids: 07/28/24 Time Last Intake of Solids: 23:59 Past Medical History Medical History Diarrhea Kidney stone BMI 38.0-38.9,adult Shortness of breath on exertion Exercise / Class Metabolic Activity II 4-5 Yardwork/Stairs/Walk up hill Past Family History Family History Unknown Stroke syndrome Cerebral arterial aneurysm Father Diabetes Lung cancer Hypertension Mother Cerebral arterial aneurysm Pure hypercholesterolemia Brother Sleep apnea, obstructive Pure hypercholesterolemia Sister Pure hypercholesterolemia Denies family history of Ovarian cancer Prostate cancer Myocardial infarction Breast cancer Colorectal cancer Past Surgical History Surgical History History of cataract surgery History of blepharoplasty History of conization of cervix History of dilation and curettage History of tubal ligation Hx of cataract surgery Past Anesthesia History No Hx of Anesthesia Complications and No Family Hx of Anesthesia Complications History of PONV No Hx of PONV and No Hx of Motion Sickness Social History Smoking Status: Former smoker Smoking cigarettes per day: 10- 20 A DAY AND IT WAS OFF AND ON FOR UNKNOWN YEARS Hx Alcohol Use: Yes Alcohol type: wine alcohol intake frequency: holidays/special occasions only Hx Substance Use: No Physical Exam Vital Signs Last Vital Signs Temp 36.8 C 07/29/24 07:05 Pulse 74 07/29/24 07:05 Resp 20 07/29/24 07:05 BP 124/73 07/29/24 07:05 Pulse Ox 98 07/29/24 07:05 O2 Del Method Room Air 07/29/24 07:05 Constitutional no acute distress ENMT Mouth: no dentition abnormality Thyromental Distance: > or= 3.5 Finger Breadths Mallampati Class: II Neck normal visual inspection Respiratory normal respiratory effort; no respiratory distress Auscultation: lungs clear to auscultation bilaterally Cardiovascular Rate/Rhythm: regular rate and regular rhythm Heart Sounds: no murmur Musculoskeletal Spine: normal cervical ROM Psychiatric Orientation: alert and oriented x 3 Testing Laboratory Results 07/29/24 05:58 07/29/24 05:58 Urine Color Yellow 07/28/24 03:05 Urine Appearance Cloudy (Clear) A 07/28/24 03:05 Urine pH 5.5 (4.5-7.5) 07/28/24 03:05 Ur Specific Walker 1.016 (1.000-1.030) 07/28/24 03:05 Urine Protein Negative (Negative) 07/28/24 03:05 Urine Glucose (UA) Negative (Negative) 07/28/24 03:05 Urine Ketones Negative (Negative) 07/28/24 03:05 Urine Nitrite Positive (Negative) A 07/28/24 03:05 Ur Leukocyte Esterase 2+ (Negative) H 07/28/24 03:05 Urine WBC (Auto) 21-50 /hpf (0-5) H 07/28/24 03:05 Urine RBC (Auto) 0-2 /hpf (0-2) 07/28/24 03:05 U Hyaline Cast (Auto) 0-2 /lpf (0-2) 07/28/24 03:05 U Epithel Cells (Auto) 3-5 /hpf (0-2) H 07/28/24 03:05 Urine Bacteria (Auto) 4+ (None Seen) H 07/28/24 03:05 07/28/24 03:05 Urine Culture - Preliminary Urine,Clean Catch Gram negative bacilli Day of Procedure Evaluation. Date of Surgery July 29, 2024 Height/Weight Height: 5 ft 3 in Weight: 99.3 kg Vital Signs Last Vital Signs Temp 36.8 C 07/29/24 07:05 Pulse 74 07/29/24 07:05 Resp 20 07/29/24 07:05 BP 124/73 07/29/24 07:05 Pulse Ox 98 07/29/24 07:05 O2 Del Method Room Air 07/29/24 07:05 Allergies Allergy/AdvReac Type Severity Reaction Status Date / Time No Known Drug Allergies Allergy Verified 07/14/24 11:12 Medications Home Medications Medication Instructions Recorded Confirmed Last Taken cholecalciferol (vitamin D3) 125 5,000 unit PO DAILY 08/17/20 07/28/24 Unknown mcg (5,000 unit) capsule mecobalamin (vitamin B12) 1,000 1,000 mcg PO DAILY #90 tabs 10/31/23 07/28/2424 mcg chewable tablet atorvastatin 10 mg tablet 10 mg PO DAILY #90 tabs 04/04/24 07/28/24 07/27/24 hydrochlorothiazide 25 mg tablet 25 mg PO DAILY #90 tabs 04/04/24 07/28/24 07/27/24 losartan 100 mg tablet 100 mg PO DAILY #90 tabs 04/04/24 07/28/24 07/27/24 semaglutide 2 mg/dose (8 mg/3 mL) 2 mg (0.75 mL) subcut Q7D #3 mL 07/14/24 07/28/24 07/22/24 subcutaneous pen injector (Ozempic) Active Medications Generic Name Dose Route Start Last Admin Trade Name Andrey PRN Reason Stop Dose Admin Ciprofloxacin 400 mg in 200 mls @ 200 mls/hr 07/28/24 06:00 07/29/24 06:38 Cipro / D5w IV 08/07/24 05:59 Infused Q12H PABLO Infusion Protocol Metronidazole 500 mg in 100 mls @ 100 mls/hr 07/28/24 06:00 07/29/24 07:52 Flagyl IV 08/07/24 05:24 Infused Q8H PABLO Infusion Protocol Pantoprazole Sodium 40 mg/ 10 mls @ 5 mls/min 07/28/24 11:00 07/28/24 13:07 Syringe IV 07/29/24 11:01 5 mls/min DAILY@1100 PABLO Administration Past Anesthesia History No Hx of Anesthesia Complications and No Family Hx of Anesthesia Complications History of PONV No Hx of PONV and No Hx of Motion Sickness NPO Date Last Intake of Fluids: 07/28/24 Time Last Intake of Fluids: 23:59 Date Last Intake of Solids: 07/28/24 Time Last Intake of Solids: 23:59 Home Medications Home Medications Medication Instructions Recorded Confirmed Last Taken cholecalciferol (vitamin D3) 125 5,000 unit PO DAILY 08/17/20 07/28/24 Unknown mcg (5,000 unit) capsule mecobalamin (vitamin B12) 1,000 1,000 mcg PO DAILY #90 tabs 10/31/23 07/28/24 07/27/24 mcg chewable tablet atorvastatin 10 mg tablet 10 mg PO DAILY #90 tabs 04/04/24 07/28/24 07/27/24 hydrochlorothiazide 25 mg tablet 25 mg PO DAILY #90 tabs 04/04/24 07/28/24 07/27/24 losartan 100 mg tablet 100 mg PO DAILY #90 tabs 04/04/24 07/28/24 07/27/24 semaglutide 2 mg/dose (8 mg/3 mL) 2 mg (0.75 mL) subcut Q7D #3 mL 07/14/24 07/28/24 07/22/24 subcutaneous pen injector (Ozempic) Active Medications Generic Name Dose Route Start Last Admin Trade Name Andrey PRN Reason Stop Dose Admin Ciprofloxacin 400 mg in 200 mls @ 200 mls/hr 07/28/24 06:00 07/29/24 06:38 Cipro / D5w IV 08/07/24 05:59 Infused Q12H PABLO Infusion Protocol Metronidazole 500 mg in 100 mls @ 100 mls/hr 07/28/24 06:00 07/29/24 07:52 Flagyl IV 08/07/24 05:24 Infused Q8H PABLO Infusion Protocol Pantoprazole Sodium 40 mg/ 10 mls @ 5 mls/min 07/28/24 11:00 07/28/24 13:07 Syringe IV 07/29/24 11:01 5 mls/min DAILY@1100 PABLO Administration Exercise / Class Metabolic Activity Metabolic Activity: II 4-5 Yardwork/Stairs/Walk up hill Physical Exam Constitutional: no acute distress Mouth: no dentition abnormality Thyromental Distance: > or= 3.5 Finger Breadths Mallampati Class: II Neck: + visual inspection normal Respiratory: + respiratory effort normal and + clear to auscultation bilaterally; no respiratory distress Cardiovascular: + regular rate and + regular rhythm; no murmur Musculoskeletal: no limited cervical ROM Psychiatric: + alert and + oriented x 3 ASA ASA3 Proposed Anesthesia Proposed Anesthesia: General Risk / Benefits Reviewed With: PT / POA / Parent / Guardian, Accepts Plan and Informed Consent Obtained
--- NOTE | 2024-07-29 08:45 | Electrocardiogram Report ---
Test Reason : Blood Pressure : */* mmHG Vent. Rate : 89 BPM Atrial Rate : 89 BPM P-R Int : 164 ms QRS Dur : 104 ms QT Int : 388 ms P-R-T Axes : 57 -10 71 degrees QTcB Int : 472 ms Normal sinus rhythm Low voltage QRS Borderline ECG When compared with ECG of 15-May-2012 15:14, No significant change Confirmed by Seth Baker ([id number]) on 07/29/2024 8:44:57 AM Referred By: REFERRED SELF Confirmed By: Seth Baker
[2024-07-29] MEDS ORDERED: DEXAMETHASONE SOD INJ 4 MG/ML VIAL ONE (09:05)
[2024-07-29] MEDS ORDERED: ONDANSETRON INJ 2 MG/ML 2 ML VIAL ONE (09:05)
[2024-07-29] MEDS ORDERED: SUGAMMADEX SODIUM 200 MG/2 ML VIAL IV ONE (09:05)
[2024-07-29] MEDS ORDERED: PROPOFOL IV EMULSION 10 MG/ML 20 ML VIAL IV ONE (09:05)
[2024-07-29] MEDS ORDERED: ROCURONIUM BROMIDE 10 MG/ML 5 ML VIAL IV ONE (09:05)
[2024-07-29] MEDS ORDERED: LIDOCAINE 2% 2 ML VIAL/AMP(20MG/ML) INFIL ONE (09:05)
[2024-07-29] MEDS: BUPIVACAINE/EPINEPHRINE 0.5% MPF 1:200,000 30 ML VIAL ONE (09:21)
--- NOTE | 2024-07-29 09:33 | Operative Report ---
Post Operative Report Pre & Post Diagnosis Operation Date: 07/29/24 08:25 Pre-Op Diagnosis: Acute acalculous cholecystitis Post-Op Diagnosis: Acute acalculous cholecystitis I identified the patient and participated in the time-out.: Yes Procedure Operation Date: 07/29/24 08:25 Actual Procedures p Laparoscopic Cholecystectomy - Evan Levine MD Surgeon Evan Levine MD Bindery Machine Setter/Set Up Operator Haydee Marcos PA-C Estimated Blood Loss 10 Findings Consistent with Post-Op Diagnosis Specimens Gallbladder to pathology Drains None Anesthesia Type General Complications none Disposition Accompanied Patient To Recovery: No Disposition: Recovery Room Indications This is a 68-year-old female admitted with acute abdominal pain. She underwent a workup which showed ultrasound with acute cholecystitis findings. There were no gallstones seen. She continued to have pain and RUQ tenderness. We recommended a laparoscopic cholecystectomy. We reviewed risks detail she wished to proceed. Description of Procedure The patient was taken the OR, placed in the supine position and underwent excellent general endotracheal anesthesia. Their abdomen is prepped and draped normal sterile fashion. A transverse supraumbilical incision was made and dissection was taken down to identify the anterior fascia. Two Vicryl' sutures were placed on either side of the midline and his midline was then incised. The peritoneal cavity was entered bluntly with Sadaf clamp. A 12mm Mix trocar was then inserted and secured. Good pneumoperitoneum was achieved to 15 mmHg pressure. The patient was placed in head up and rolled to the left position. A 11mm subxiphoid and two 5mm lateral ports were placed in the normal fashion. T he gallbladder was identified and was acutely inflamed. The the fundus of the gallbladder was retracted superiorly. The neck of the gallbladder was grasped and then retracted laterally. This splayed open the Hepatocystic triangle. Attention was then turned to taking down the peritoneal attachments and identify the cystic duct and cystic artery. Once these were skeletonized and a medial and lateral window was created between the gallbladder fossa and the duct, thereby ensuring the critical view. Then three clips were then placed distally on cystic duct one proximally on the cystic duct, it was then transected. Two clips were then placed approximately on the cystic artery one distally, the cystic artery was transected. An electrocautery hook was then used to move the gallbladder off the gallbladder fossa. There was some bile spillage but no stones were spilled. The gallbladder was then placed into an Endobag and brought out through the supraumbilical incision. The pneumoperitoneum was re- established and abdomen was irrigated out until the suction fluid was clear. There were some areas on the gallbladder fossa which were raw which were cauterized. The ports were then removed and the abdomen decompressed. The fascia of the supraumbilical incision was closed with Vicryls. 0.5% Marcaine with epinephrine local was to create a local field block. Interrupted Vicryl was used to close the skin. Dermabond was used to reinforce the incisions. Sterile dressings were applied. Patient tolerated the procedure without complication and sent to the postop recovery period of observation. They will then be sent to the floor for the rest of their care. Haydee Marcos PA-C was present and participated in the entire procedure. She was integral in skin closure, retraction, and camera manipulation. There was no qualified resident available to assist. I attest to the content of the Intraoperative Record and any orders documented therein. Any exceptions are noted below.
[2024-07-29] MEDS: HYDROmorphone INJ 1 MG/ML SYRINGE IV PRN (09:46)
[2024-07-29] MEDS ORDERED: KETOROLAC 30 MG/ML VIAL ONE (09:49)
--- NOTE | 2024-07-29 10:53 | Anesthesiology Progress Note ---
Date of Service July 29, 2024 Anesthesia Post Procedure Vital Signs Vital Signs: Temp Pulse Pulse Resp BP BP Pulse Ox 07/29/24 10:30 37.2 C 83 15 107/67 95 07/29/24 10:20 37.2 C 75 20 111/67 95 07/29/24 10:10 75 15 120/67 95 07/29/24 10:00 77 15 153/70 H 96 07/29/24 09:50 77 22 140/87 93 07/29/24 09:43 36.5 C 84 20 144/88 H 97 07/29/24 08:22 36.4 C L 77 15 131/93 95 07/29/24 07:05 07/29/24 07:05 36.8 C 74 20 124/73 98 07/28/24 19:23 36.7 C 82 18 138/86 95 07/28/24 16:10 36.5 C 80 16 133/85 97 Pulse Ox O2 Del Method O2 Del Method O2 Flow Rate 07/29/24 10:30 Nasal Cannula 2 07/29/24 10:20 Nasal Cannula 2 07/29/24 10:10 Nasal Cannula 2 07/29/24 10:00 Nasal Cannula 2 07/29/24 09:50 Nasal Cannula 2 07/29/24 09:43 Nasal Cannula 2 07/29/24 08:22 Room Air 07/29/24 07:05 98 Room Air 07/29/24 07:05 Room Air 07/28/24 19:23 Room Air 07/28/24 16:10 Room Air Pain Intensity Back: Pain Intensity: 8 Transfer of Care Handoff Completed per policy Notes Mental Status: alert / awake / arousable and participated in evaluation Nausea / Vomiting: adequately controlled Pain: adequately controlled Airway Patency, RR, SpO2: stable & adequate BP & HR: stable & adequate Hydration State: stable & adequate Anesthetic Complications: no major complications apparent and Pt Satisfied with anesthetic care
[2024-07-29] MEDS: LACTATED RINGER'S 1,000 ML IV SCH (11:46)
[2024-07-29] MEDS: oxyCODONE/ACETAMINOPHEN 5mg/325mg TAB PO PRN ×2 (14:42→21:25)
[2024-07-29] MEDS: ACETAMINOPHEN 1,000 MG/100 ML VIAL IV PRN (19:40)
--- NOTE | 2024-07-29 21:20 | Hospitalist Progress Note ---
Date of Service July 29, 2024 Assessment & Plan (1) Abnormal gallbladder ultrasound: (2) Acalculous cholecystitis: (3) Hyperlipidemia: (4) Hypertension: (5) Vitamin B12 deficiency: (6) Obesity: (7) Metabolic syndrome: (8) Severe sleep apnea: Plan Acalculous cholecystitis/abnormal gallbladder ultrasound- Neutrophilic leukocytosis Normal LFTs and lipase Dilated common bile duct of 8.5 mm Sonographic Andrade sign Order HIDA scan Cipro 400 mg IV every 12 hours Flagyl 500 mg IV every 8 hours Pantoprazole 40 mg IV daily Zofran 4 mg IV every 6 hours as needed NSS + KCl 20 mill equivalents at 80 mL/h x 1 L Acetaminophen 1 g IV every 8 hours as needed for mild pain or fever Morphine sulfate 2 mg IV every 3 hours as needed for moderate pain Morphine sulfate 4 mg IV every 3 hours as needed for severe pain Consult general surgery On 07/29 tolerated procedure. Gallbladder removed. Will monitor for another day and contiue IV antibiotics. Metabolic syndrome/diabetes mellitus/hyperlipidemia- Holding semaglutide, atorvastatin Hypertension- Hold HCTZ and losartan Hydralazine 10 mg IV every 4 hours as needed for systolic blood pressure above 160 Admission and Anticipated Discharge Date Admission Date: July 29, 2024 Subjective 68 yo female reports no new symptoms. Patient tolerated procedure. Review of Systems Review of Systems: All systems reviewed & are unremarkable except as noted in HPI & below Physical Exam Physical Exam: The patient is awake, alert and oriented 3, w HEENT--PERRL, EOMI, mucous membranes and oropharynx dry. Neck--supple.No JVD. No bruits. Thyroid normal, trachea midline, no adenopathy. Abdomen--normal bowel sounds and soft. Nontender. Nondistended Extremities--no cyanosis or clubbing. No edema. There are good distal pulses b/l. Results & Data Results & Data Vital Signs (Past 12 Hours) Vital Signs Temp Pulse Pulse Resp BP BP Pulse Ox 07/29/24 20:11 36.6 C 79 16 102/68 94 07/29/24 13:45 36.8 C 65 20 108/60 98 07/29/24 12:43 36.7 C 71 20 121/77 98 07/29/24 11:45 36.5 C 70 20 106/65 98 07/29/24 11:23 36.7 C 82 16 107/72 93 07/29/24 10:45 36.5 C 71 20 113/71 98 07/29/24 10:30 37.2 C 83 15 107/67 95 07/29/24 10:20 37.2 C 75 20 111/67 95 07/29/24 10:10 75 15 120/67 95 07/29/24 10:00 77 15 153/70 H 96 07/29/24 09:50 77 22 140/87 93 07/29/24 09:43 36.5 C 84 20 144/88 H 97 O2 Del Method O2 Flow Rate 07/29/24 20:11 Room Air 07/29/24 13:45 Room Air 07/29/24 12:43 Room Air 07/29/24 11:45 Room Air 07/29/24 11:23 Room Air 07/29/24 10:45 Room Air 07/29/24 10:30 Nasal Cannula 2 07/29/24 10:20 Nasal Cannula 2 07/29/24 10:10 Nasal Cannula 2 07/29/24 10:00 Nasal Cannula 2 07/29/24 09:50 Nasal Cannula 2 07/29/24 09:43 Nasal Cannula 2 PG Care Time/CCT Total # of Minutes Spent Total Time Spent with Patient: Total time spent is greater than 50% in coordination of care (as documented) at patient's floor/unit and/or counseling patient: Coding Level of Care Code 13735 SUB INP/OBS CARE 2MIN Diagnoses Abnormal gallbladder ultrasound R93.2 Acalculous cholecystitis K81.9 Hyperlipidemia E78.5 Hypertension I10 Vitamin B12 deficiency E53.8 Class 2 severe obesity due to excess calories with serious comorbidity and body mass index (BMI) of 39.0 to 39.9 in adult E66.01; Z68.39 Body mass index: BMI 39.0-39.9 Obesity classification: adult class 2 (BMI 35 - 39.9) Obesity type: due to excess calories Serious obesity comorbidity presence: with serious comorbidity Metabolic syndrome E88.81 Severe sleep apnea G47.30 (6) Obesity Body mass index: BMI 39.0-39.9 Obesity classification: adult class 2 (BMI 35 - 39.9) Obesity type: due to excess calories Serious obesity comorbidity presence: with serious comorbidity Qualified Code(s): E66.01 - Morbid (severe) obesity due to excess calories; Z68.39 - Body mass index [BMI] 39.0-39.9, adult
[2024-07-30 04:11] VITALS: TEMP 98.1
[2024-07-30 07:46] LABS: Basophils # (auto) 0.04 K/uL (0.00-0.20); Basophils % (auto) 0.4 %; Eosinophils # (auto) 0.01 K/uL (0.00-0.50); Eosinophils % (auto) 0.1 %; Hemoglobin 10.9 g/dl (12.0-16.0); Immature Granulocytes # (auto) 0.04 K/uL (0.01-0.20); Immature Granulocytes % (auto) 0.4 %; Lymphocytes # (auto) 1.86 K/uL (1.20-3.40); Mean Corpuscular Hemoglobin 28.5 pg (25.0-34.0); Mean Corpuscular Volume 86.4 fL (80.0-100.0); Mean Platelet Volume 9.5 fL (9.4-12.4); Monocytes # (auto) 0.55 K/uL (0.11-0.59); Monocytes % (auto) 5.3 %; Neutrophils # (auto) 7.85 K/uL (1.40-6.50); Neutrophils % (auto) 75.8 %; Platelet Count 265 K/uL (130-400); RDW Coefficient of Variation 13.8 % (11.5-14.5); RDW Standard Deviation 43.1 fL (36.4-46.3); Red Blood Count 3.82 M/uL (4.20-5.40); White Blood Count 10.35 K/ul (4.8-10.8)
[2024-07-30 08:00] VITALS: RESP 20; O2SAT 98
--- NOTE | 2024-07-30 08:15 | Surgery Progress Note ---
Date of Service July 30, 2024 Assessment & Plan (1) Acute acalculous cholecystitis: Plan: doing well discharge per medical team appt my clinic 2 weeks Rx for pain pills per medical team no oral antibiotic needed for home instructions in chart Admission and Anticipated Discharge Date Admission Date: July 29, 2024 Subjective doing well pain controlled taking po Review of Systems Constitutional: no fever and no chills Respiratory: no cough and no dyspnea Cardiovascular: no chest pain Gastrointestinal: + abdominal pain; no nausea, no vomiting and no change in bowel habits Physical Exam Constitutional: WD/WN, vitals as above Gastrointestinal (Abdomen): Inspection/Auscultation: abdomen normal to inspection; abdomen not distended Percussion/Palpation: + abdomen tender and abdomen soft; no guarding and abdomen not rigid Results & Data Vital Signs (Past 12 Hours) Vital Signs Temp Pulse Resp BP Pulse Ox Pulse Ox O2 Del Method 07/30/24 08:00 98 07/30/24 07:59 36.7 C 75 20 115/75 98 Room Air 07/30/24 04:10 36.7 C 77 16 110/72 95 Room Air 07/30/24 00:00 36.8 C 73 16 99/62 L 94 Room Air O2 Del Method 07/30/24 08:00 Room Air 07/30/24 07:59 07/30/24 04:10 07/30/24 00:00
[2024-07-30 08:17] LABS: Albumin Globulin Ratio 1.5 (0.9-2); Albumin Level 3.6 gm/dl (3.4-5.0); BUN Creatinine Ratio 16.7 (10-20); Bilirubin,Total 0.5 mg/dl (0.2-1.0); Calcium 8.8 mg/dl (8.6-10.3); Globulin 2.4 gm/dl (2.5-4.0); Potassium 3.9 mmol/L (3.5-5.1)
[2024-07-30] MEDS: PANTOprazole 40 MG in SYRINGE DAILY IV SCH (09:18)
[2024-07-30 12:10] VITALS: BP 107/72; PULSE 83
--- NOTE | 2024-08-01 14:43 | Discharge Summary ---
Discharge Summary Date of Service July 30, 2024 Principal Dx & Hospital Course #1 = Principal Diagnosis (1) Abnormal gallbladder ultrasound: (2) Acalculous cholecystitis: (3) Hyperlipidemia: (4) Hypertension: (5) Vitamin B12 deficiency: (6) Obesity: (7) Metabolic syndrome: (8) Severe sleep apnea: Plan Acalculous cholecystitis/abnormal gallbladder ultrasound- Neutrophilic leukocytosis Normal LFTs and lipase Dilated common bile duct of 8.5 mm Sonographic Andrade sign Cipro 400 mg IV every 12 hours Flagyl 500 mg IV every 8 hours/ continued 24 hours post surgery. Consulted general surgery. Gallbladder was removed. Patient afebrile and vitals stable, pain relieved. Discharged on 07/30 Metabolic syndrome/diabetes mellitus/hyperlipidemia- resumed semaglutide, atorvastatin at discharge Hypertension- resumed home meds Admission HPI Per Admitting Provider The patient is a 68-year-old female with a past medical history including morbid obesity following with bariatric service, recent 13.7% weight loss, recently placed on semaglutide, mild reactive airways disease, restrictive lung disease secondary to obesity, B12 deficiency, hyperlipidemia, hypertension, metabolic syndrome, nocturnal hypoxia, severe LAURA and vitamin D deficiency. The patient presents to the emergency department after the acute onset of right upper quadrant pain rotating around to her back bilaterally, around 9:00 this evening, with the intensity causing her to come to the ED for assessment. She has had no previous occurrence of this pain. She has not had any significant issues with reflux or indigestion. She was given Toradol 30 mg IV in the ED which relieved the pain. Gallbladder ultrasound showed abnormal gallbladder with sonographic Andrade sign, common bile duct dilation of 8.5 mm, altogether concerning for possible acalculous cholecystitis. Case was reviewed by the ED with general surgery, who asked that the patient be admitted to the hospitalist service with surgical consult. Discharge Exam The patient is awake, alert and oriented 3, w HEENT--PERRL, EOMI, mucous membranes and oropharynx dry. Neck--supple.No JVD. No bruits. Thyroid normal, trachea midline, no adenopathy. Abdomen--normal bowel sounds and soft. Nontender. Nondistended Extremities--no cyanosis or clubbing. No edema. There are good distal pulses b/l. Discharge Plan Discharge Items Patient Disposition: Home - Self-Care Reason For Visit: ACALCULOUS CHOLECYSTITIS Discharge Diagnosis: acalculous cholecystitis Activity: Resume your previous activity Non-emergency contact: Primary Care Provider Call non-emergency contact if: you have any medication questions Follow-up/Referrals: Suhas Tomlin MD [Primary Care Provider] - 08/08/24 10:30 am Haydee Marcos PA-C [Physician Siphoner] - Diet: Low Fiber and Low Fat Addtl Attending Provider Instructions: Recommend followup with PCP in 1-2 weeks. Addtl Wire Bender Provider Instructions: Post-Surgical ~Discharge Instructions Activity Recommendations: - lifting limitation: (20 pounds for 2-3 weeks), - exercise/sex/sports limit: (nonstrenuous for 2 weeks), - driving or machine use limit: (none for 1 week or until pain free and no longer taking narcotic pain medication), - Shower/bathe limit: (may shower, no submerging incisions underwater for 2 weeks) Diet: - Resume previous diet SPECIAL CARE INSTRUCTIONS: - May shower. . Let water run over area and pat dry. - Leave surgical glue on incisions, this will fall off on its own. - Call the surgeon's office with any questions or concerns - - (ex. temperature higher than 101 degrees F, excessive bleeding or pain). MEDICATIONS: - Resume previous medications unless instructed otherwise by your surgeon. - May alternate extra strength Tylenol and Ibuprofen as needed for mild to m oderate pain -650 mg Tylenol every 6 hours as needed - Ibuprofen 600 mg every 6 hours as needed, take with food - Percocet 1 every 6 hours, as needed for moderate to severe pain - Recommend daily stool softener (Colace) while taking narcotic pain medication to prevent constipation or straining. Drink plenty of water daily. FOLLOW UP VISIT: - If not already scheduled, please call the office to schedule a two week follow-up appointment. Office number Pending Studies at Discharge: Yes (gallbladder pathology, will be reviewed at postop visit) Stand-Alone Forms: My [facility] [employer], Smoking Cessation Medications and DC Order Prescriptions: Continued mecobalamin (vitamin B12) 1,000 mcg tablet,chewable 1,000 mcg PO DAILY Qty: 90 3RF atorvastatin 10 mg tablet 10 mg PO DAILY Qty: 90 3RF hydrochlorothiazide 25 mg tablet 25 mg PO DAILY Qty: 90 3RF losartan 100 mg tablet 100 mg PO DAILY Qty: 90 3RF cholecalciferol (vitamin D3) 125 mcg (5,000 unit) capsule 5,000 unit PO DAILY Patient Comments: 5,000 unit PO Once Daily With Heaviest Meal of the Day; Ozempic 2 mg/dose (8 mg/3 mL) pen injector 2 mg subcut Q7D Qty: 3 5RF Discharge Orders: Discharge Order (Routine); Ordered 07/30/24 Ordered By: Quique Butler/Other Patient Handouts: Low-Fiber Diet, ED Diet, Low Fat Admission Data Admit Date/Time: 07/29/24 15:12 Attending Provider: Quique Yates Admit Provider: Quique Yates Primary Care Provider: Suhas Tomlin V. Other Providers: Tan Dowd; Trace Jordan Other Interventions: Discharge Summary Assessment (RN) Last Done: 07/30/24 12:10 Hospital Stay Data Consultations 07/28/24 03:23 ED Decision to Admit Stat 07/28/24 05:25 Consult General Surgery Routine Procedures Performed Operation Date: 07/29/24 08:25 Actual Procedures p Laparoscopic Cholecystectomy - Evan Levine MD Diagnostic Imagining Performed 07/28/24 01:22 gallbladder Stat Pending Results Patient Have Any Pending Studies at Discharge: Yes (gallbladder pathology, will be reviewed at postop visit) Discharge Instructions Given to Patient (Per Discharging Provider) Recommend followup with PCP in 1-2 weeks. Total Time Total Time Spent Total Time Spent (In Minutes): 32 Coding Level of Care Code 13558 INP/OBS DISCH >30 MIN Diagnoses Abnormal gallbladder ultrasound R93.2 Acalculous cholecystitis K81.9 Hyperlipidemia E78.5 Hypertension I10 Vitamin B12 deficiency E53.8 Class 2 severe obesity due to excess calories with serious comorbidity and body mass index (BMI) of 39.0 to 39.9 in adult E66.01; Z68.39 Obesity type: due to excess calories Obesity classification: adult class 2 (BMI 35 - 39.9) Serious obesity comorbidity presence: with serious comorbidity Body mass index: BMI 39.0-39.9 Metabolic syndrome E88.81 Severe sleep apnea G47.30
== END 2024-07-30 12:16 | disposition home or self-care (01) | DRG 419 ==
LOC: ED → 3E → SUATTDRO 04:08 → 3E 05:09
DX: Z98.84 Bariatric surgery status; E88.810 Metabolic syndrome; K81.0 Acute cholecystitis; E53.8 Deficiency of other specified B group vitamins; I10 Essential (primary) hypertension; E66.9 Obesity, unspecified; G47.30 Sleep apnea, unspecified; Z79.85 Long-term (current) use of injectable non-insulin antidiabetic drugs; E78.5 Hyperlipidemia, unspecified; Z87.891 Personal history of nicotine dependence